=== PATIENT | female | born 1970 | race Caucasian/White ===

== ENCOUNTER → 2017-02-03 | Outpatient (CLI) | payer MEDICAID ==
[~2017-02-03] MED LIST: ATARAX25 MG PO; CLINDAMYCIN HC300 MG PO; HYDROCODONE BIT1 T11 PO; LIDEX0.05% T; MOTRIN800 MG PO; OXYCODONE30 MG PO; PERCOCET 325 MG1 TA4 PO; PREDNICOT20 MG PO; ULTRAM50 MG PO; VOLTAREN50 MG PO; Zofran4 MG PO
== END | disposition home or self-care (01) ==
LOC: RESCLI 00:57
DX: B86 Scabies (principal); Q84 Other congenital malformations of integument; F32.9 Major depressive disorder, single episode, unspecified; M79.7 Fibromyalgia; M54.9 Dorsalgia, unspecified; F17.210 Nicotine dependence, cigarettes, uncomplicated; B97.7 Papillomavirus as the cause of diseases classified elsewhere; F41.9 Anxiety disorder, unspecified; Z90.49 Acquired absence of other specified parts of digestive tract

== ENCOUNTER → 2017-03-03 | Outpatient (CLI) | payer OTHER ==
[2017-03-03 11:01] LABS: BILIRUBIN NEGATIVE (NEGATIVE); BLOOD TRACE-INTACT (NEGATIVE); CLARITY CLEAR (CLEAR); COLOR YELLOW (YELLOW); GLUCOSE NEGATIVE (NEGATIVE); KETONE NEGATIVE (NEGATIVE); LEUKO ESTERASE 3+ (NEGATIVE); NITRITE NEGATIVE (NEGATIVE); PH 5.5 (5.0-9.0); SPECIFIC GRAVITY 1.015 (1.005-1.030); UROBILINOGEN 0.2 E.U./dl (0.2-1.0)
[2017-03-03 11:02] LABS: BASO % 0.4 % (0.0-1.0); EOS # 0.1 10*3/uL (0.0-0.4); EOS % 0.9 % (1.0-4.0); HEMATOCRIT 43.6 % (37.0-47.0); HEMOGLOBIN 14.6 g/dl (12.0-16.0); LYMPH # 2.4 10*3/uL (1.3-4.4); LYMPH % 27.7 % (27.0-41.0); MEAN CELL VOLUME 89.5 fl (81.0-99.0); MEAN CORPUSCULAR HGB CONC 33.5 g/dl (33.0-37.0); MEAN PLATELET VOLUME 10.2 fl (9.6-12.3); MONO # 0.7 10*3/uL (0.1-1.0); MONO % 8.1 % (3.0-9.0); NEUT # 5.4 10*3/uL (2.3-7.9); NEUT % 62.4 % (47.0-73.0); PLATELET COUNT AUTOMATED 247 10*3/uL (130-400); RED BLOOD COUNT 4.87 10*6/uL (4.10-5.10); RED CELL DISTRI WIDTH 13.3 % (0-14.5); WHITE BLOOD COUNT 8.6 10*3/uL (4.8-10.8)
[2017-03-03 11:08] LABS: BACTERIA TRACE; WBC 16-20 wbc/hpf (0-5)
[2017-03-03 11:25] LABS: ALBUMIN 3.4 gm/dl (3.1-4.5); ALKALINE PHOSPHATASE 81 U/L (45-117); BUN 13 mg/dl (7-24); CHLORIDE 106 mmol/L (98-107); CHOLESTEROL 217 mg/dL (<200); CREATININE 0.71 mg/dL (0.55-1.02); HDL CHOLESTEROL 53 mg/dl (40-60); LDL CHOLESTEROL 136 mg/dL (9-159); MAGNESIUM 1.9 mg/dL (1.5-2.1); SGOT/AST 21 IU/L (3-35); SGPT/ALT 33 U/L (12-78); SODIUM 138 mmol/L (136-145); TOTAL PROTEIN 7.9 gm/dL (6.4-8.2); TRIGLYCERIDES 139 mg/dl (<150); VLDL CHOLESTEROL 28 mg/dL (6-40)
[2017-03-03 14:47] LABS: ACT PARTIAL THROMBO TIME 24.1 SECONDS (20.8-31.5)
== END | disposition home or self-care (01) ==
LOC: RESCLI 02-24 03:15 → LAB 01:58 → RESCLI 08:18
PROVIDERS: Internal Medicine
DX: F32.9 Major depressive disorder, single episode, unspecified (principal); B86 Scabies; M79.7 Fibromyalgia; F17.210 Nicotine dependence, cigarettes, uncomplicated; B97.7 Papillomavirus as the cause of diseases classified elsewhere; R68.89 Other general symptoms and signs; F41.9 Anxiety disorder, unspecified; C44.41 Basal cell carcinoma of skin of scalp and neck; R79.1 Abnormal coagulation profile; R79.89 Other specified abnormal findings of blood chemistry

== ENCOUNTER 2017-04-27 22:24 | Emergency (ER) | payer OTHER ==
[~2017-04-27] VITALS: Ht 167.6 cm; Wt 70.3 kg
[2017-04-27] MEDS ORDERED: LATU60TA PO (22:35)
[2017-04-27] MEDS ORDERED: LEXAPRO20 MG PO (22:35)
[2017-04-27] MEDS ORDERED: REMERON30 M1 PO (22:36)
[2017-04-27] MEDS ORDERED: VISTARIL25 MG PO (22:36)
[2017-04-27] MEDS ORDERED: DELTASONE20 M1 PO (22:56)
== END 2017-04-27 23:03 | disposition home or self-care (01) ==
LOC: ED 22:24
DX: M25.532 Pain in left wrist (principal); M25.531 Pain in right wrist; R21 Rash and other nonspecific skin eruption; L98.9 Disorder of the skin and subcutaneous tissue, unspecified; F17.200 Nicotine dependence, unspecified, uncomplicated; Z98.51 Tubal ligation status; Z98.890 Other specified postprocedural states; Z79.899 Other long term (current) drug therapy

== ENCOUNTER 2017-08-13 00:09 | Inpatient (IN) | payer OTHER ==
[2017-08-13] VITALS (9 sets, daily range): BP systolic 95–138; BP diastolic 65–88
[~2017-08-13] VITALS: Ht 167.6 cm; Wt 76.2 kg
--- NOTE | ~2017-08-13 | CON ---
[place], [place] REPORT OF CONSULTATION NAME: SHARON SAINI [facility] #: [id number] UNIT #: [id number] ROOM: 532 DOCTOR: VICKY MORTON MDDAY BIRTHDATE: [birth year] DOS: 08/15/2017 CONSULTATION REQUESTED BY: Hospitalist service. REASON FOR CONSULTATION: Assessment of possibility of pulmonary embolism. HISTORY OF PRESENT ILLNESS: This is a 47-year-old white female patient who has been admitted to the hospital as the patient was noted with symptoms of acute chest pain occurring for the past 2 to 3 days. The pain was described to be moderate to severe without radiation in the left chest. The patient denies any symptoms of coughing with that. Shortness of breath was the only symptom reported. There were no symptoms of hemoptysis. Denies any chest trauma of the patient at the site of the chest pain. The patient has been assessed by Dr. Carpenter and a nuclear medicine scan was done as the ultrasound of the lower extremities. Nuclear Medicine scan was described with high probability of pulmonary embolism. The extremities ultrasound for the patient noted negative for any deep venous thrombosis. REVIEW OF SYSTEMS: CONSTITUTIONAL: Fatigue, tiredness reported. Denies symptoms of fever or chills. EYES: Denies any burning, redness, or tenderness. EARS, NOSE, THROAT: Denies sore throat, hoarseness, otalgia, postnasal drainage or epistaxis. CARDIOVASCULAR: Denied anginal pain, edema, pain of the lower extremities. GASTROINTESTINAL: Denies dysphagia, nausea, vomiting, diarrhea, abdominal pain, hematemesis, melena or hematochezia. SKIN: Denies any abnormal lesions or rashes. CENTRAL NERVOUS SYSTEM: Denies dizziness, headache, diplopia or syncopal episodes. MUSCULOSKELETAL: The patient was noted without any acute deformities. PAST MEDICAL HISTORY: 1. The patient was noted history of generalized anxiety and depression. 2. History of attention deficit hyperactivity disorder. 3. Nicotine dependency. 4. History of dependence on the narcotic medication, currently using Suboxone. PAST SURGICAL HISTORY: 1. . 2. Removal of basal cell cancer of the patient on the skin. 3. Right knee arthroscopy. SOCIAL HISTORY: The patient is . She lives at home. Smoking noted for the patient is a pack of cigarettes per day active since teenager. The patient has four children. FAMILY HISTORY: The patient's father with complication related to liver cirrhosis. Mother with complications of COPD. [place], [place] REPORT OF CONSULTATION NAME: SHARON SAINI UNIT #: [id number] ROOM: 532 DOCTOR: VICKY MORTON MD,DAY BIRTHDATE: [birth year] HOME MEDICATIONS: Listed as use of: 1. Suboxone. 2. Wellbutrin. 3. Lexapro. 4. Guanfacine. 5. Restoril. 6. Latuda. 7. Remeron. DRUG ALLERGIES: Noted with no known drug allergies. PHYSICAL EXAMINATION: GENERAL: A 47-year-old female currently comfortable, resting on the bed. The patient without any acute distress. Height of 5 feet 6 inches, weight 168 pounds, BMI 27. VITAL SIGNS: The patient with normal temperature, respiratory rate 18-15, heart rate of 104-66, blood pressure 120/74 to 124/82. Pulse oxygen saturation for the patient on room air 93% saturation. HEENT: Examination shows head was atraumatic. Edentulous status. NECK: Supple. CARDIOVASCULAR: S1, S2 is audible. LUNGS: Noted decreased breath sounds noted in the left lower lung. There was no wheezing. There were no crackles. ABDOMEN: Soft, nontender, flat. EXTREMITIES: The patient noted without any edema, clubbing, cyanosis. SKIN: No lesions or rashes. MUSCULOSKELETAL SYMPTOMS: Without any acute deformities. CENTRAL NERVOUS SYSTEM: No focal deficit. Cranial nerves 2-12 intact. LABORATORY DATA: CBC of the patient on 08/13/2017 noted WBC count 12.0, remaining CBC normal. PT/PTT normal on 08/13/2017. D-dimer 1.83, mildly elevated on admission. CMP of the patient of 08/13/2017, glucose 113, BUN and creatinine was normal. Troponin normal. The second and third set of troponin remains normal on 08/13/2017. CBC of 08/13/2017 remains normal. CMP of the patient of 08/13/2017 noted with normal BUN and creatinine. The V/Q scan was noted high probability for pulmonary embolism in the lingula of the patient by the radiologist, lower extremity ultrasound noted negative for any deep venous thrombosis on the 08/13/2017. CBC this morning remains normal. The CMP of the patient essentially remains normal. I have ordered CT of the chest of the patient for further assessment for this patient at present time, which was noted with evidence of acute pulmonary embolism involving the lingular subsegment of the left upper lobe for this patient or relating to the VQ scan. Small left-sided pleural fluid noted for the patient with area of infiltration for this patient in the left lower lobe with possibility of pulmonary infarct was also suggested. A small area of infiltration atelectasis noted in the right lower lobe as well. IMPRESSION: 1. The patient who has been currently admitted to the hospital noted acute pulmonary embolism with pulmonary infarct, very likely. There was no clinical [place], [place] REPORT OF CONSULTATION NAME: SHARON SAINI [facility] #: [id number] UNIT #: [id number] ROOM: [facility] DOCTOR: DAY CARBALLO MD BIRTHDATE: [birth year] evidence of pneumonia for the patient at this time. The pneumonia will be considered less likely. 2. Small pleural fluid noted as a result of the current pulmonary embolism for this patient. 3. History of chronic nicotine dependence. 4. History of chronic narcotics medication dependence as well. PLAN OF THERAPY: The patient is already started on the therapeutic dose of Xarelto 50 mg b.i.d. that will be continued for the patient at this time. She would not be requiring any antibiotics. The pleural fluid for the patient will be monitored closely. At the present time, no intervention will be needed. If the pleural fluid enlarges causing any respiratory distress, certainly, I will consider thoracentesis. Continue the patient's nicotine replacement therapy in the form of the nicotine inhaler for the patient, which has been noted at the bedside and used by the patient on this hospitalization. She does not have any clinical evidence of exacerbation of COPD or bronchial asthma symptoms. Supportive therapy, plan of management will be continued as previously. Additional treatment changes will be recommended based on the progression of the illness. Usual care. Nebulized bronchodilator could be given for the patient to help mobilize secretion to help improve the atelectasis of the patient in the lungs. DAY PERRY MD CM:CONSTR:REPORT OF CONSULTATION 1000 08/15/17 1323 interface
--- NOTE | ~2017-08-13 | PR ---
[place], [place] PROGRESS NOTE NAME: SHARON SAINI [facility] #: [id number] UNIT #: [id number] ROOM: 532 DOCTOR: VICKY MORTON MD,DAY BIRTHDATE: [birth year] DOS: 08/16/2017 SUBJECTIVE: The patient was noted comfortable at this time, resting on the bed. She has not been noted with symptoms of chest pain, acute shortness of breath or any abdominal pain. She was continued on Xarelto. OBJECTIVE: VITAL SIGNS: For the patient, which has been recorded showed normal temperature, respiratory rate 16, heart rate of 66, blood pressure 136/86 recorded. Pulse oxygen saturation on room air 96% saturation. HEENT: Shows head was atraumatic. Eye nonicterus. NECK: Supple. CARDIOVASCULAR: S1, S2 audible. LUNGS: Without any wheezing. Minimal crackles at the left lung base. ABDOMEN: Soft, nontender. EXTREMITIES: Without any acute edema. LABORATORY DATA: The chest x-ray done this morning shows improving aeration in the left lower lung with resolution of pleural effusion. IMPRESSION: 1. The patient with acute pulmonary embolus with pulmonary infarction, area of atelectasis, and left lower lobe with the pleural fluid is improving. 2. History of chronic obstructive pulmonary disease was also noted as well. PLAN OF MANAGEMENT: No changes from the pulmonary standpoint. Discharge planning could be started. Discharge the patient on oral Xarelto for the remaining 12 days 15 mg b.i.d. followed by 20 mg daily. Outpatient workup for hypercoagulability if needs to be done. The patient has scheduled appointment in the office that will be achieved. Discharge planning was discussed with Dr. Eliu Galo. DAY PERRY MD CM:PNTRANS [id number] DAY MORTON MD 08/17/17 0948 SUJEY [email or web address].PP
[~2017-08-13 00:09] MED LIST changes: +DELTASONE20 M1 PO; +LATU60TA PO; +LEXAPRO20 MG PO; +REMERON30 M1 PO; +VISTARIL25 MG PO
[2017-08-13 01:32] LABS: BASO % 0.2 % (0.0-1.0); EOS % 0.2 % (1.0-4.0); HEMATOCRIT 44.1 % (37.0-47.0); HEMOGLOBIN 15.1 g/dl (12.0-16.0); LYMPH # 3.7 10*3/uL (1.3-4.4); LYMPH % 31.1 % (27.0-41.0); MEAN CELL VOLUME 83.4 fl (81.0-99.0); MEAN CORPUSCULAR HGB 28.5 pg (27.0-31.0); MEAN CORPUSCULAR HGB CONC 34.2 g/dl (33.0-37.0); MEAN PLATELET VOLUME 10.3 fl (9.6-12.3); MONO # 0.9 10*3/uL (0.1-1.0); MONO % 7.7 % (3.0-9.0); NEUT # 7.3 10*3/uL (2.3-7.9); NEUT % 60.5 % (47.0-73.0); PLATELET COUNT AUTOMATED 185 10*3/uL (130-400); RED BLOOD COUNT 5.29 10*6/uL (4.10-5.10); RED CELL DISTRI WIDTH 13.4 % (0-14.5)
[2017-08-13 01:55] LABS: ALBUMIN 3.6 gm/dl (3.1-4.5); ALKALINE PHOSPHATASE 93 U/L (45-117); BUN 14 mg/dl (7-24); CHLORIDE 103 mmol/L (98-107); CREATININE 0.79 mg/dL (0.55-1.02); LIPASE 86 U/L (73-393); POTASSIUM 3.7 mmol/L (3.5-5.1); SGOT/AST 27 IU/L (3-35); SGPT/ALT 44 U/L (12-78); SODIUM 139 mmol/L (136-145); TOTAL PROTEIN 7.7 gm/dL (6.4-8.2)
[2017-08-13 01:57] LABS: TROPONIN I < 0.015 ng/ml (<0.045)
[2017-08-13] MEDS ORDERED: INTUNIV2 MG PO (03:24)
[2017-08-13] MEDS ORDERED: SUBOXONE 8 MG-1 EACH SL (03:25)
[2017-08-13] MEDS ORDERED: WELLBUTRIN XL150 MG PO (03:25)
[2017-08-13 07:11] LABS: ALBUMIN 3.3 gm/dl (3.1-4.5); ALKALINE PHOSPHATASE 90 U/L (45-117); BUN 18 mg/dl (7-24); CHLORIDE 104 mmol/L (98-107); CHOLESTEROL 169 mg/dL (<200); CREATININE 0.91 mg/dL (0.55-1.02); HDL CHOLESTEROL 44 mg/dl (40-60); LDL CHOLESTEROL 89 mg/dL (9-159); POTASSIUM 4.1 mmol/L (3.5-5.1); SGOT/AST 25 IU/L (3-35); SGPT/ALT 44 U/L (12-78); SODIUM 138 mmol/L (136-145); TOTAL PROTEIN 7.6 gm/dL (6.4-8.2); TRIGLYCERIDES 181 mg/dl (<150); VLDL CHOLESTEROL 36 mg/dL (6-40)
[2017-08-13 07:17] LABS: BASO % 0.3 % (0.0-1.0); EOS % 0.2 % (1.0-4.0); HEMATOCRIT 43.1 % (37.0-47.0); HEMOGLOBIN 14.4 g/dl (12.0-16.0); LYMPH # 2.7 10*3/uL (1.3-4.4); LYMPH % 25.5 % (27.0-41.0); MEAN CELL VOLUME 84.7 fl (81.0-99.0); MEAN CORPUSCULAR HGB 28.3 pg (27.0-31.0); MEAN CORPUSCULAR HGB CONC 33.4 g/dl (33.0-37.0); MEAN PLATELET VOLUME 10.9 fl (9.6-12.3); MONO # 0.8 10*3/uL (0.1-1.0); NEUT # 6.9 10*3/uL (2.3-7.9); NEUT % 65.6 % (47.0-73.0); PLATELET COUNT AUTOMATED 190 10*3/uL (130-400); RED BLOOD COUNT 5.09 10*6/uL (4.10-5.10); RED CELL DISTRI WIDTH 13.5 % (0-14.5); WHITE BLOOD COUNT 10.5 10*3/uL (4.8-10.8)
[2017-08-13 08:28] LABS: VITAMIN D, 25-HYDROXY < 4.2 ng/mL (30-100)
[2017-08-14] VITALS: BP 99/65
[2017-08-14 00:35] LABS: BILIRUBIN NEGATIVE (NEGATIVE); BLOOD 2+ (NEGATIVE); CLARITY CLEAR (CLEAR); COLOR YELLOW (YELLOW); GLUCOSE NEGATIVE (NEGATIVE); KETONE NEGATIVE (NEGATIVE); LEUKO ESTERASE 1+ (NEGATIVE); NITRITE NEGATIVE (NEGATIVE); PH 5.5 (5.0-9.0); SPECIFIC GRAVITY 1.015 (1.005-1.030); UROBILINOGEN 0.2 E.U./dl (0.2-1.0)
[2017-08-14 08:00] VITALS: BP 120/74
[2017-08-14 12:00] VITALS: BP 116/79
[2017-08-14 16:23] VITALS: BP 95/61
[2017-08-14 20:00] VITALS: BP 94/62
[2017-08-15] VITALS: BP 101/70
[2017-08-15 06:48] LABS: BASO % 0.4 % (0.0-1.0); EOS % 0.5 % (1.0-4.0); HEMATOCRIT 38.8 % (37.0-47.0); HEMOGLOBIN 13.2 g/dl (12.0-16.0); LYMPH # 2.2 10*3/uL (1.3-4.4); LYMPH % 28.4 % (27.0-41.0); MEAN CELL VOLUME 85.3 fl (81.0-99.0); MEAN PLATELET VOLUME 10.2 fl (9.6-12.3); MONO # 0.7 10*3/uL (0.1-1.0); NEUT # 4.8 10*3/uL (2.3-7.9); NEUT % 61.3 % (47.0-73.0); PLATELET COUNT AUTOMATED 204 10*3/uL (130-400); RED BLOOD COUNT 4.55 10*6/uL (4.10-5.10); RED CELL DISTRI WIDTH 13.6 % (0-14.5); WHITE BLOOD COUNT 7.8 10*3/uL (4.8-10.8)
[2017-08-15 07:31] LABS: ALBUMIN 2.8 gm/dl (3.1-4.5); BUN 22 mg/dl (7-24); CHLORIDE 111 mmol/L (98-107); POTASSIUM 4.1 mmol/L (3.5-5.1); SODIUM 142 mmol/L (136-145)
[2017-08-15 07:36] LABS: ALKALINE PHOSPHATASE 80 U/L (45-117); CREATININE 1.02 mg/dL (0.55-1.02); SGOT/AST 20 IU/L (3-35); SGPT/ALT 31 U/L (12-78); TOTAL PROTEIN 6.9 gm/dL (6.4-8.2)
[2017-08-15 08:00] VITALS: BP 124/82
[2017-08-15 12:00] VITALS: BP 151/84
[2017-08-15 16:00] VITALS: BP 118/69
[2017-08-15 20:00] VITALS: BP 125/87
[2017-08-16] VITALS: BP 130/72
[2017-08-16 07:19] LABS: BASO % 0.3 % (0.0-1.0); EOS # 0.1 10*3/uL (0.0-0.4); EOS % 1.3 % (1.0-4.0); HEMATOCRIT 42.9 % (37.0-47.0); HEMOGLOBIN 14.6 g/dl (12.0-16.0); LYMPH # 2.5 10*3/uL (1.3-4.4); MEAN CELL VOLUME 85.1 fl (81.0-99.0); MEAN PLATELET VOLUME 10.3 fl (9.6-12.3); MONO # 0.6 10*3/uL (0.1-1.0); MONO % 9.5 % (3.0-9.0); NEUT # 2.8 10*3/uL (2.3-7.9); NEUT % 47.2 % (47.0-73.0); PLATELET COUNT AUTOMATED 219 10*3/uL (130-400); RED BLOOD COUNT 5.04 10*6/uL (4.10-5.10); RED CELL DISTRI WIDTH 13.5 % (0-14.5)
[2017-08-16 07:38] LABS: ALBUMIN 2.8 gm/dl (3.1-4.5); BUN 25 mg/dl (7-24); CHLORIDE 111 mmol/L (98-107); SGOT/AST 24 IU/L (3-35); SGPT/ALT 38 U/L (12-78); SODIUM 141 mmol/L (136-145)
[2017-08-16 07:41] LABS: ALKALINE PHOSPHATASE 81 U/L (45-117); CREATININE 0.89 mg/dL (0.55-1.02); TOTAL PROTEIN 7.4 gm/dL (6.4-8.2)
[2017-08-16 08:00] VITALS: BP 136/86
[2017-08-16 12:00] VITALS: BP 123/74
[2017-08-16] MEDS ORDERED: XARE15TA PO (13:10)
[2017-08-16] MEDS ORDERED: XARE20MG PO (13:10)
[2017-08-16] MEDS ORDERED: NORCO 5-325 TA1 EACH PO (13:10)
== END 2017-08-16 15:59 | disposition home or self-care (01) | DRG 176 ==
LOC: ED 00:09 → EDHOLD 02:14 → 5E 02:14
PROVIDERS: Emergency Medicine; Family Medicine Adult Medicine; Physician Assistant
DX: I26.99 Other pulmonary embolism without acute cor pulmonale (principal); D72.810 Lymphocytopenia; F32.9 Major depressive disorder, single episode, unspecified; R21 Rash and other nonspecific skin eruption; M25.532 Pain in left wrist; M25.531 Pain in right wrist; I10 Essential (primary) hypertension; G47.00 Insomnia, unspecified; F90.9 Attention-deficit hyperactivity disorder, unspecified type; R79.89 Other specified abnormal findings of blood chemistry; F41.1 Generalized anxiety disorder; E55.9 Vitamin D deficiency, unspecified; F17.210 Nicotine dependence, cigarettes, uncomplicated; M79.7 Fibromyalgia; G89.29 Other chronic pain; R73.03 Prediabetes; Z98.891 History of uterine scar from previous surgery; Z96.651 Presence of right artificial knee joint; Z98.51 Tubal ligation status; Z90.49 Acquired absence of other specified parts of digestive tract; Z82.49 Family history of ischemic heart disease and other diseases of the circulatory system; Z82.3 Family history of stroke; Z71.6 Tobacco abuse counseling; Z83.6 Family history of other diseases of the respiratory system; Z83.2 Family history of diseases of the blood and blood-forming organs and certain disorders involving the immune mechanism; Z79.899 Other long term (current) drug therapy

== ENCOUNTER → 2017-09-29 | Outpatient (CLI) | payer OTHER ==
[~2017-09-29] MED LIST changes: +INTUNIV2 MG PO; +NORCO 5-325 TA1 EACH PO; +SUBOXONE 8 MG-1 EACH SL; +WELLBUTRIN XL150 MG PO; +XARE15TA PO; +XARE20MG PO
== END | disposition home or self-care (01) ==
LOC: RESCLI 01:36
DX: J40 Bronchitis, not specified as acute or chronic (principal); R21 Rash and other nonspecific skin eruption; I27.82 Chronic pulmonary embolism; E55.9 Vitamin D deficiency, unspecified; F32.9 Major depressive disorder, single episode, unspecified; F41.9 Anxiety disorder, unspecified; F90.9 Attention-deficit hyperactivity disorder, unspecified type; R53.82 Chronic fatigue, unspecified; R87.610 Atypical squamous cells of undetermined significance on cytologic smear of cervix (ASC-US); F17.200 Nicotine dependence, unspecified, uncomplicated; Z90.49 Acquired absence of other specified parts of digestive tract

== ENCOUNTER 2018-03-05 21:11 | Emergency (ER) | payer OTHER ==
[~2018-03-05] VITALS: Ht 167.6 cm; Wt 70.3 kg
--- NOTE | ~2018-03-05 | EKG ---
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
[2018-03-05] MEDS ORDERED: AUGMENTIN 875875 MG PO (22:31)
[2018-03-05] MEDS ORDERED: Motrin,Rufen800 MG PO (22:31)
== END 2018-03-05 22:34 | disposition home or self-care (01) ==
LOC: ED 21:11
DX: J32.9 Chronic sinusitis, unspecified (principal); J06.9 Acute upper respiratory infection, unspecified; R05 Cough; R09.81 Nasal congestion; F17.200 Nicotine dependence, unspecified, uncomplicated; Z79.899 Other long term (current) drug therapy; Z98.890 Other specified postprocedural states; Z85.828 Personal history of other malignant neoplasm of skin

== ENCOUNTER → 2018-04-20 | Outpatient (CLI) | payer OTHER ==
[~2018-04-20] MED LIST changes: +AUGMENTIN 875875 MG PO; +Motrin,Rufen800 MG PO
[2018-04-21 09:08] LABS: FOLLICLE STIMULATING HORMONE 54.8 mIU/mL (.); LUTEINIZING HORMONE 004283 32.4 mIU/mL (.); PROLACTIN 004465 6.1 ng/mL (4.8-23.3)
== END | disposition home or self-care (01) ==
LOC: RESCLI 08:22 → LAB 08:22
PROVIDERS: Student in an Organized Health Care Education/Training Program
DX: Z00.00 Encounter for general adult medical examination without abnormal findings (principal)

== ENCOUNTER 2019-04-05 10:11 | Emergency (ER) | payer OTHER ==
[~2019-04-05] VITALS: Ht 167.6 cm; Wt 70.3 kg
[2019-04-05] MEDS ORDERED: PREDNISONE20 M1 PO (11:14)
[2019-04-05] MEDS ORDERED: ELIMITE 5%60 GM T (11:14)
[2019-04-05] MEDS ORDERED: TESSALON PERLE100 M1 PO (11:18)
== END 2019-04-05 11:27 | disposition home or self-care (01) ==
LOC: ED 10:11
DX: B86 Scabies (principal); J40 Bronchitis, not specified as acute or chronic; F17.200 Nicotine dependence, unspecified, uncomplicated; Z79.2 Long term (current) use of antibiotics; Z79.899 Other long term (current) drug therapy

== ENCOUNTER 2019-06-01 21:20 | Emergency (ER) | payer OTHER ==
[~2019-06-01] VITALS: Ht 167.6 cm; Wt 70.8 kg
[~2019-06-01 21:20] MED LIST changes: +ELIMITE 5%60 GM T; +PREDNISONE20 M1 PO; +TESSALON PERLE100 M1 PO
[2019-06-01] MEDS ORDERED: TESSALON PERLE100 M1 PO (22:58)
[2019-06-01] MEDS ORDERED: PROAIR HFA8.5 GM INH (22:58)
[2019-06-01] MEDS ORDERED: ZITHROMAX250 MG PO (22:58)
[2019-06-01] MEDS ORDERED: PREDNISONE20 M1 PO (22:58)
== END 2019-06-01 23:02 | disposition home or self-care (01) ==
LOC: ED 21:20
DX: R05 Cough (principal); I10 Essential (primary) hypertension; G43.909 Migraine, unspecified, not intractable, without status migrainosus; G89.29 Other chronic pain; M79.7 Fibromyalgia; F17.200 Nicotine dependence, unspecified, uncomplicated; Z90.49 Acquired absence of other specified parts of digestive tract

== ENCOUNTER → 2021-04-02 | Outpatient (CLI) | payer OTHER ==
[~2021-04-02] MED LIST changes: +PROAIR HFA8.5 GM INH; +ZITHROMAX250 MG PO
== END | disposition home or self-care (01) ==
LOC: COVID19 15:29
PROVIDERS: ATTEND Internal Medicine
DX: U07.1 COVID-19 (principal)

== ENCOUNTER 2021-12-08 22:55 | Emergency (ER) | payer OTHER ==
[2021-12-09] MEDS ORDERED: PREDNISONE20 M1 PO (00:50)
== END 2021-12-09 01:18 | disposition home or self-care (01) ==
LOC: ED 22:55
DX: J40 Bronchitis, not specified as acute or chronic (principal); Z20.822 Contact with and (suspected) exposure to COVID-19; Z98.890 Other specified postprocedural states

== ENCOUNTER 2023-05-16 19:46 | Emergency (ER) | payer OTHER ==
[~2023-05-16] VITALS: Ht 162.5 cm; Wt 72.6 kg
[2023-05-16] MEDS ORDERED: AVPAK AZITHROM250 MG PO (21:39)
== END 2023-05-16 22:51 | disposition home or self-care (01) ==
LOC: ED 19:46
DX: J40 Bronchitis, not specified as acute or chronic (principal); Z20.822 Contact with and (suspected) exposure to COVID-19; F17.210 Nicotine dependence, cigarettes, uncomplicated; Z79.899 Other long term (current) drug therapy; Z79.2 Long term (current) use of antibiotics; Z98.890 Other specified postprocedural states

== ENCOUNTER 2024-01-24 14:23 | Emergency (ER) | payer OTHER ==
[~2024-01-24] VITALS: Ht 165.1 cm; Wt 70.3 kg
[~2024-01-24 14:23] MED LIST changes: +AVPAK AZITHROM250 MG PO
[2024-01-24] MEDS ORDERED: AMOX-CLAV 875-1 EACH PO (14:40)
[2024-01-24] MEDS ORDERED: Amoxicillin/Clavulanate Pota 875 MG TAB PO ONE (14:50)
== END 2024-01-24 14:50 | disposition home or self-care (01) ==
LOC: ED 14:23
DX: H66.91 Otitis media, unspecified, right ear (principal); G43.909 Migraine, unspecified, not intractable, without status migrainosus; I10 Essential (primary) hypertension; M79.7 Fibromyalgia; F17.200 Nicotine dependence, unspecified, uncomplicated; Z98.890 Other specified postprocedural states; Z90.49 Acquired absence of other specified parts of digestive tract; Z98.51 Tubal ligation status

== ENCOUNTER 2024-08-18 00:30 | Emergency (ER) | payer OTHER ==
[~2024-08-18] VITALS: Ht 167.6 cm; Wt 70.3 kg
[~2024-08-18 00:30] MED LIST changes: +AMOX-CLAV 875-1 EACH PO
[2024-08-18] MEDS ORDERED: AZITHROMYCIN 250 MG TAB PO ONE (03:20)
[2024-08-18] MEDS ORDERED: BENZONATATE 100 MG CAP PO ONE (03:20)
[2024-08-18] MEDS ORDERED: ZITHROMAX250 MG PO (03:21)
[2024-08-18] MEDS ORDERED: BENZONATATE100 M1 PO (03:21)
== END 2024-08-18 03:38 | disposition home or self-care (01) ==
LOC: ED 00:30
DX: J40 Bronchitis, not specified as acute or chronic (principal); Z20.822 Contact with and (suspected) exposure to COVID-19; F41.9 Anxiety disorder, unspecified; F32.A Depression, unspecified; F90.9 Attention-deficit hyperactivity disorder, unspecified type; F17.210 Nicotine dependence, cigarettes, uncomplicated; Z86.711 Personal history of pulmonary embolism; Z98.890 Other specified postprocedural states